=== PATIENT | male | born 1970 | race Hispanic/Latino ===

== ENCOUNTER 2024-07-28 02:23 | Emergency (ER) | payer OTHER ==
[~2024-07-28] VITALS: Ht 180.3 cm; Wt 117.9 kg
[2024-07-28 02:32] VITALS: TEMP 98.5
[2024-07-28 03:02] LABS: BASOPHILS # (AUTO) 0.1 (0.0-0.1); BASOPHILS % 0.4 % (0.0-1.0); EOSINOPHILS # (AUTO) 0.2 (0.0-0.4); EOSINOPHILS % 1.7 % (0.0-6.0); HEMATOCRIT 52.4 % (38.2-49.6); HEMOGLOBIN 17.6 g/dL (14.0-18.0); LYMPHOCYTES # (AUTO) 3.2 (1.0-3.2); LYMPHOCYTES % 26.9 % (18.0-39.1); MEAN CORPUSCULAR HEMOGLOBIN 29.8 pg (28-32); MEAN CORPUSCULAR HGB CONC 33.6 g/dL (31-35); MEAN CORPUSCULAR VOLUME 88.7 fL (81-99); MONOCYTES # (AUTO) 1.1 (0.2-0.8); MONOCYTES % 9.1 % (4.4-11.3); NEUTROPHILS # (AUTO) 7.4 (2.1-6.9); NEUTROPHILS % 61.6 % (38.7-80.0); PLATELET COUNT 210 x10e3/uL (140-360); RED BLOOD COUNT 5.91 x10e6/uL (4.3-5.7); RED CELL DISTRIBUTION WIDTH 13.7 % (11.7-14.4); WHITE BLOOD COUNT 12.06 x10e3/uL (4.8-10.8)
[2024-07-28] MEDS: SODIUM CHLORIDE 0.9% 1000ML 1,000 ML IV ONE (03:05)
[2024-07-28 03:10] LABS: INR 0.99; PROTHROMBIN TIME 13.6 seconds (11.9-14.5)
[2024-07-28] MEDS: HYDROXYZINE HCL 25 MG TAB PO ONE (03:26)
[2024-07-28] MEDS: METOPROLOL TARTRATE INJ 1 MG/ML VIAL IV ONE (03:27)
[2024-07-28 03:30] LABS: ALBUMIN 3.9 g/dL (3.5-5.0); ANION GAP 15.5 mmol/L (8-16); BILIRUBIN,TOTAL 0.3 mg/dL (0.2-1.2); CALCIUM 9.1 mg/dL (8.4-10.2); CREATININE, SERUM 1.25 mg/dL (0.72-1.25); POTASSIUM 3.5 mmol/L (3.5-5.1); TOTAL PROTEIN 7.8 g/dL (6.5-8.1)
[2024-07-28 03:36] LABS: TROPONIN I 0.008 ng/mL (0-0.300)
[2024-07-28 04:15] VITALS: PULSE 99; RESP 20
[2024-07-28] MEDS ORDERED: HYDROXYZINE HCL25 MG PO (04:37)
[2024-07-28] MEDS ORDERED: METOPROLOL TART50 MG PO (04:37)
[2024-07-28 04:59] VITALS: BP 139/93; PULSE 107; O2SAT 99
== END 2024-07-28 04:55 | disposition home or self-care (01) ==
LOC: ER 02:30
DX: R00.2 Palpitations (principal); I10 Essential (primary) hypertension; F41.9 Anxiety disorder, unspecified; K21.9 Gastro-esophageal reflux disease without esophagitis
CPT/HCPCS: 36415; 71045; 80053; 82550; 84484; 85025; 85379; 85610; 85730; 93005; 99284; J3410; J7030

== ENCOUNTER 2025-08-10 15:36 | Emergency (ER) | payer SELFPAY ==
[~2025-08-10] VITALS: Ht 180.3 cm; Wt 117.9 kg
[~2025-08-10 15:36] MED LIST: HYDROXYZINE HCL25 MG PO; METOPROLOL TART50 MG PO
[2025-08-10 17:53] VITALS: PULSE 100; RESP 18; TEMP 98.3
[2025-08-10] MEDS: HYDROCODONE/APAP 5MG-325MG TAB PO ONE (18:00)
[2025-08-10] MEDS: ONDANSETRON HCL 4 MG ORAL DISINTEGRATING TAB PO ONE (18:02)
[2025-08-10] MEDS: TETANUS/DIPHTHERIA TOX ADULT 0.5 ML SYR IM ONE (18:03)
[2025-08-10] MEDS ORDERED: CEPHALEXIN500 MG PO (18:50)
[2025-08-10] MEDS ORDERED: ULTRAM 50MG50 MG PO (18:53)
[2025-08-10] MEDS: BACITRACIN ZINC 0.9GM TP STA (19:31)
[2025-08-10 19:35] VITALS: BP 141/90; O2SAT 100
== END 2025-08-10 19:32 | disposition home or self-care (01) ==
LOC: ER 17:48
DX: S61.202A Unspecified open wound of right middle finger without damage to nail, initial encounter (principal); W23.1XXA Caught, crushed, jammed, or pinched between stationary objects, initial encounter; Y92.89 Other specified places as the place of occurrence of the external cause; I10 Essential (primary) hypertension; F41.9 Anxiety disorder, unspecified
CPT/HCPCS: 73140; 90471; 90714; 99283; Q0162